=== PATIENT | female | born 1950 | race Caucasian/White ===

== ENCOUNTER → 2017-12-15 | Outpatient (CLI) | payer OTHER | LOC: M.RAD 10:56 | DX: Z12.31 Encounter for screening mammogram for malignant neoplasm of breast (principal) ==

== ENCOUNTER → 2018-12-15 | Outpatient (CLI) | payer OTHER | LOC: M.RAD 10:44 | DX: Z12.31 Encounter for screening mammogram for malignant neoplasm of breast (principal) ==

== ENCOUNTER 2019-11-13 12:06 | Emergency (ER) | payer OTHER ==
[~2019-11-13] VITALS: Ht 162.6 cm; Wt 113.4 kg
[2019-11-13] MEDS ORDERED: LOTREL 10-40 M1 EACH PO (12:18)
[2019-11-13] MEDS ORDERED: ZOCOR20 MG PO (12:18)
[2019-11-13] MEDS ORDERED: GLUCOSAMINE HC500 M1 PO (12:19)
[2019-11-13] MEDS ORDERED: VITAMIN D310 MC3 PO (12:19)
[2019-11-13] MEDS ORDERED: TYLENOL WITH CO1 TA1 PO (14:10)
[2019-11-13 14:27] VITALS: BP 142/59
== END 2019-11-13 14:28 | disposition home or self-care (01) ==
LOC: M.ERS 12:06
DX: S00.83XA Contusion of other part of head, initial encounter (principal); M25.562 Pain in left knee; M25.522 Pain in left elbow; R10.2 Pelvic and perineal pain; I10 Essential (primary) hypertension; Z98.51 Tubal ligation status; Z96.641 Presence of right artificial hip joint; W01.0XXA Fall on same level from slipping, tripping and stumbling without subsequent striking against object, initial encounter; Y93.89 Activity, other specified; Y92.481 Parking lot as the place of occurrence of the external cause; Y99.8 Other external cause status

== ENCOUNTER → 2019-12-20 | Outpatient (CLI) | payer OTHER ==
[~2019-12-20] MED LIST: GLUCOSAMINE HC500 M1 PO; LOTREL 10-40 M1 EACH PO; TYLENOL WITH CO1 TA1 PO; VITAMIN D310 MC3 PO; ZOCOR20 MG PO
== END ==
LOC: M.RAD 08:56
PROVIDERS: ATTEND Family Medicine
DX: Z12.31 Encounter for screening mammogram for malignant neoplasm of breast (principal); Z13.820 Encounter for screening for osteoporosis; Z78.0 Asymptomatic menopausal state